=== PATIENT | female | born 1945 | race Caucasian/White ===

== ENCOUNTER → 2023-10-12 10:55 | Outpatient (REF) | payer MEDICARE, SELFPAY ==
[2023-10-12 11:48] LABS: % Basophils 0.4 % (0-2); % Eosinophils 0.8 % (0-6); % Immature Granulocytes 0.4 % (0-0.5); % Lymphocytes 13.4 % (20.5-51.1); % Monocytes 10.5 % (1.7-9.3); % Neutrophils 74.5 % (42.2-75.2); Absolute Eosinophils 0.1 10^3/uL (0-0.7); Absolute Monocytes 0.8 10^3/uL (0.1-0.6); Absolute Neutrophils 5.7 10^3/uL (1.4-6.5); Hematocrit 41.2 % (37.0-47.0); Hemoglobin 13.9 g/dL (12.0-16.0); Mean Corp Hgb Conc. 33.7 g/dL (33.0-37.0); Mean Corpuscular Hgb 30.3 pg (27.0-31.0); Mean Corpuscular Volume 89.8 fL (81.0-99.0); Mean Platelet Volume 9.9 fL (7.4-10.4); Nucleated Red Blood Cells % 0 %; Platelet Count 188 10^3/uL (130-400); Red Blood Cell Count 4.59 10^6/uL (4.20-5.40); Red Cell Dist. Width 13.5 % (11.5-14.5); White Blood Cell Count 7.7 10^3/uL (4.8-10.8)
[2023-10-12 12:24] LABS: ALT (SGPT) 15 U/L (0-35); AST (SGOT) 17 U/L (14-36); Albumin 4.2 g/dl (3.5-5.0); Alkaline Phosphatase 73 U/L (38-126); Blood Urea Nitrogen 21 mg/dl (7-17); Carbon Dioxide 27 mmol/L (22-30); Chloride 105 mmol/L (98-107); Glucose 95 mg/dl (70-99); HDL Cholesterol 92 mg/dl; LDL Cholesterol, Calculated 60 mg/dl; Potassium 4.3 mmol/L (3.5-5.1); Sodium 136 mmol/L (135-145); Total Bilirubin 1.3 mg/dl (0.2-1.3); Total Cholesterol 164 mg/dl (50-199); Total Protein 6.8 g/dl (6.3-8.2); Triglyceride 62 mg/dl (10-149); Very Low Density Lipoprotein 12 mg/dl (0-30); eGFR 57.66
[2023-10-12 12:51] LABS: TSH Reflex To Free T4 0.45 uIU/ml (0.47-4.68)
[2023-10-12 13:21] LABS: Free T4 2.01 ng/dl (0.78-2.19)
== END ==
LOC: REG 10:55
PROVIDERS: ATTENDING PHYSICIAN Specialist; FAMILY PHYSICIAN Family Medicine
DX: N20.0 Calculus of kidney (principal); E78.5 Hyperlipidemia, unspecified
CPT/HCPCS: 36415; 74018; 80053; 80061; 84439; 84443; 85025

== ENCOUNTER → 2024-02-19 08:27 | Outpatient (REF) | payer MEDICARE, SELFPAY | LOC: WDC 08:27 | PROVIDERS: ATTENDING PHYSICIAN Internal Medicine Hematology & Oncology; FAMILY PHYSICIAN Family Medicine | DX: R92.8 Other abnormal and inconclusive findings on diagnostic imaging of breast (principal); Z85.3 Personal history of malignant neoplasm of breast; C50.212 Malignant neoplasm of upper-inner quadrant of left female breast; M85.80 Other specified disorders of bone density and structure, unspecified site; M81.0 Age-related osteoporosis without current pathological fracture | CPT/HCPCS: 76642; 77080 ==

== ENCOUNTER 2024-03-25 09:53 | Outpatient (RCR) | payer MEDICARE, SELFPAY | END 2024-03-25 23:59 | disposition home or self-care (01) | LOC: RPT 09:53 | PROVIDERS: ATTENDING PHYSICIAN Internal Medicine Hematology & Oncology; FAMILY PHYSICIAN Family Medicine | DX: C50.212 Malignant neoplasm of upper-inner quadrant of left female breast (principal); M85.80 Other specified disorders of bone density and structure, unspecified site; Z79.811 Long term (current) use of aromatase inhibitors | CPT/HCPCS: 97110; 97112; 97162; 97535 ==

== ENCOUNTER → 2024-08-04 07:33 | Outpatient (REF) | payer MEDICARE, SELFPAY | LOC: WDC 07:33 | PROVIDERS: ATTENDING PHYSICIAN Internal Medicine Hematology & Oncology; FAMILY PHYSICIAN Family Medicine Geriatric Medicine | DX: C50.212 Malignant neoplasm of upper-inner quadrant of left female breast (principal); M85.80 Other specified disorders of bone density and structure, unspecified site; Z12.31 Encounter for screening mammogram for malignant neoplasm of breast; Z85.3 Personal history of malignant neoplasm of breast | CPT/HCPCS: 77063; 77067 ==

== ENCOUNTER → 2025-02-10 09:17 | Outpatient (REF) | payer MEDICARE, SELFPAY | LOC: WDC 09:17 | PROVIDERS: ATTENDING PHYSICIAN Nurse Practitioner Acute Care; FAMILY PHYSICIAN Family Medicine | DX: N64.4 Mastodynia (principal) | CPT/HCPCS: 76642 ==

== ENCOUNTER → 2025-02-19 08:31 | Outpatient (REF) | payer MEDICARE, SELFPAY | LOC: RAD 08:31 | PROVIDERS: ATTENDING PHYSICIAN Orthopaedic Surgery | DX: M81.0 Age-related osteoporosis without current pathological fracture (principal); Z79.83 Long term (current) use of bisphosphonates | CPT/HCPCS: 77080 ==

== ENCOUNTER → 2025-09-01 15:17 | Outpatient (REF) | payer MEDICARE, SELFPAY | LOC: WDC 15:17 | PROVIDERS: ATTENDING PHYSICIAN Internal Medicine Hematology & Oncology; FAMILY PHYSICIAN Family Medicine | DX: Z12.31 Encounter for screening mammogram for malignant neoplasm of breast (principal); Z85.3 Personal history of malignant neoplasm of breast; C50.212 Malignant neoplasm of upper-inner quadrant of left female breast | CPT/HCPCS: 77063; 77067 ==